=== PATIENT | male | born 1995 | race Caucasian/White ===

== ENCOUNTER 2021-10-15 15:24 | Emergency (ER) | payer SELFPAY | END 2021-10-15 19:04 | disposition home or self-care (01) | LOC: CSHERS 15:24 | DX: F41.9 Anxiety disorder, unspecified (principal); I10 Essential (primary) hypertension; Z60.9 Problem related to social environment, unspecified; Z79.899 Other long term (current) drug therapy | CPT/HCPCS: 36416; 99284 ==